=== PATIENT | male | born 1950 | race Caucasian/White ===

== ENCOUNTER 2020-11-04 14:39 | Outpatient (CLI) | payer OTHER, SELFPAY ==
--- NOTE | 2020-11-04 14:45 | XR_ITS ---
WS: [id number] Exam: XR cervical spine 4-5V 92023 Date/Time of Exam: 11/04/2020 2:45 PM Reason For Exam: CERVICALGIA No acute fracture or dislocation. There is reversal of the normal cervical lordosis. Degenerative dis c narrowing at C3-4, C4-5 and C5-6. Mild spondylosis. Facet DJD at all levels. Narrowing of the left intervertebral foramina at C4-5, C5-6 and C6-7. Narrowing of the right vertebral foramina at C3-4, C4 -5, C5-6 and C6-7. Foraminal narrowing secondary to uncovertebral spurring. Bilateral carotid artery calcifications noted most extensive on the left. The odontoid is intact. Paraspinal soft tissues appe ar normal. XR/XR cervical spine 4-5V [id number] IMPRESSION: 1. No acute fracture or dislocation. 2. Reversal of the normal cervical lordosis. 3. Moderately advanced degenerative changes as detailed above.
== END 2020-11-04 14:40 | disposition home or self-care (01) ==
LOC: RAD 14:40
PROVIDERS: PCP Nurse Practitioner; Visit Provider Family Medicine
DX: M54.2 Cervicalgia (principal)
CPT/HCPCS: 72050

== ENCOUNTER → 2022-01-13 10:10 | Outpatient (BNVA) | payer OTHER, SELFPAY | PROVIDERS: PCP Family Medicine; Visit Provider Internal Medicine Cardiovascular Disease | DX: I71.2 Thoracic aortic aneurysm, without rupture (principal); I71.4 Abdominal aortic aneurysm, without rupture; I10 Essential (primary) hypertension; E11.9 Type 2 diabetes mellitus without complications; J44.9 Chronic obstructive pulmonary disease, unspecified; Z87.891 Personal history of nicotine dependence; Z79.84 Long term (current) use of oral hypoglycemic drugs | CPT/HCPCS: 99204 ==

== ENCOUNTER 2022-02-25 12:15 | Outpatient (CLI) | payer OTHER, SELFPAY ==
--- NOTE | 2022-02-25 12:30 | CT_ITS ---
WS: [id number] CT ANGIOGRAPHY chest and abdomen HISTORY: Thoracic and Abdominal Aortic Aneurysm TECHNIQUE: Noncontrast CT first performed through the abdomen and chest. CT angiogram is performed du ring IV injection. Reformation images reviewed. MIP imaging reviewed. All CT scans at [facility] use at least one of these dose optimization techniques: automated exposure control; mA and/or kV a djustment per patient size (includes targeted exams where dose is matched to clinical indication); or iterative reconstruction. CONTRAST: Omnipaque 350; 95 mL IV. DLP: 2107.51 mGy-cm. COMPARISON: None available. Thoracic aorta: Mild ectasia and dilatation of the thoracic aorta. Moderate scattered calcified plaqu e and intimal thickening throughout the aorta. The ascending aorta is not dilated. Beginning through the aortic arch calcification and intimal thickening increases in the amount. Small amount calcified plaque at the origins of the great vessels, great vessels are intact. Beginning in the descending thoracic aorta the plaque and dilatation increa ses. There are 2 penetrating ulcers beginning in the proximal descending thoracic aorta. The largest ulcer measures 3.0 x 1.1 cm and is along the lateral side of the descending aorta. There is a smaller penetrating ulcer measuring 1.2 x 0.7 cm slightly more proximal along the arch. These ulcers are bot h contained at this time by the overlying adventitia. Mildly ectatic but normal size aortic continues distally. At the level of the GE junction mild aneurysmal dilatation to 4.6 cm. Abdominal aorta: Calcified plaque and intimal thickening continues into the abdominal aorta. Below th e GE junction aorta returns to normal size. Plaque and intimal thickening continue within the aorta. In the infrarenal aorta there is mild haziness involving the wall of the aorta and variable contrast opacification within the lumen. There is an additional contrast noted from the posterior and RIGHT la teral aorta just below the renal arteries consistent with another penetrating ulcer or a possible zachary rt dissection, image 191 of series 6. Additional tiny outpouching from the anterior aorta on image 18 6 of series 6. Mild increase in the wall thickness of the inferior aorta. No rupture. Iliac arteries are tortuous. Arteries are patent. On the delayed imaging no persistent contrast opacification or ext ravasation. No pulmonary mass or nodule. Mild bronchiectasis RIGHT lower lobe with adjacent areas of groundglass attenuation and endobronchial thickening. Pulmonary artery size is normal. No significant adenopathy. No pericardial or pleural effusion. Moderate atherosclerotic plaque within the [place] coronary arter ies. No hiatal hernia. Early contrast arterial enhancement of the organs demonstrates no acute abnormalities. The liver is n ormal size. Normal spleen with granulomata. Negative gallbladder and pancreas. No adrenal mass. Anneliese l appearance of the kidneys with no obstruction. No ascites or adenopathy. Mesenteric arteries are pa tent with mild atherosclerotic plaque. Bilateral accessory renal arteries. Kidneys and normally enhan cing. No GI tract obstruction. Moderate diverticulosis without acute diverticulitis. Appendix is normal. Ve ntral abdominal wall hernia contains fat only. Bones are osteopenic. CT/CT angio chest abdomen IMPRESSION: 1. Penetrating thoracic aorta ulcers x2. Penetrating ulcers are along the prox imal descending thoracic aorta with the largest measuring 3.0 x 1.1 cm. 2. 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 3. 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 There is mild wall thickening and haziness with variable opacification of the lumen. 4. Additional infrarenal small penetrating ulcers as above. 5. Normal renal enhancement. Incidental note is made of accessory renal arteri es. 6. RIGHT lower lobe bronchiectasis.
[2022-02-25] MEDS: iohexol 350 mg/mL 100 mL Btl IV (13:14)
[2022-02-25 13:16] LABS: Blood Urea Nitrogen 11 mg/dL (8-23); Glomerular Filtration Rate 83.4 mL/min (90-130)
== END 2022-02-25 12:16 | disposition home or self-care (01) ==
LOC: RAD 12:16
PROVIDERS: PCP Family Medicine; Visit Provider Internal Medicine Cardiovascular Disease
DX: I71.2 Thoracic aortic aneurysm, without rupture (principal); I71.4 Abdominal aortic aneurysm, without rupture
CPT/HCPCS: 71275; 74175; 82565; 84520

== ENCOUNTER → 2022-06-12 10:45 | Outpatient (BNVA) | payer OTHER, SELFPAY | PROVIDERS: PCP Family Medicine; Visit Provider Internal Medicine Cardiovascular Disease | DX: Z01.818 Encounter for other preprocedural examination (principal); I71.9 Aortic aneurysm of unspecified site, without rupture; I71.2 Thoracic aortic aneurysm, without rupture; I71.4 Abdominal aortic aneurysm, without rupture; I10 Essential (primary) hypertension; E11.9 Type 2 diabetes mellitus without complications; Z79.84 Long term (current) use of oral hypoglycemic drugs; Z87.891 Personal history of nicotine dependence | CPT/HCPCS: 99214 ==

== ENCOUNTER 2022-06-25 09:25 | Outpatient (CLI) | payer OTHER, SELFPAY ==
--- NOTE | 2022-06-25 | ECG_ITS ---
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 Interpretive Statements NAME OF STUDY: LEXISCAN SESTAMIBI STRESS TEST INDICATION: CARDIAC CLEARANCE PROCEDURE: At the baseline, the blood pressure was 164/103 mmHg with a heart rate of 52 bpm. The electrocardiogram showed sinus bradycardia with artifact. Poor anterior R wave progression. The Lexiscan was infused over a period of 20 seconds. A total of 0.4 milligrams of Lexiscan was infused. The stress phase was continued for a total of 5 minutes. Heart rate at the end of the stress phase was 60 beats per min with a blood pressure of 138/90 mmHg. The EKG at the peak infusion revealed sinus rhythm with no significant ST-T wave changes. Isolated PVC noted during Lexiscan infusion. The study was terminated due to protocol completion. Sestamibi was injected 20 seconds after the Lexiscan infusion. Blood pressure at the end of the recovery phase was 154/93 mmHg with a heart rate of 55 beats per minute. Isolated PVCs in bigeminal pattern noted in recovery. CONCLUSION: 1. No significant EKG changes with the LexiScan infusion. 2. No LexiScan induced chest pain or cardiac arrhythmia. 3. Baseline hypertension with normal blood pressure and heart rate response. 4. Sestamibi/sestamibi perfusion scan pending; see separate report. Electronically Signed On 06-29-2022 9:58:17 CDT by Lamar Luu M.D. [id number]
--- NOTE | 2022-06-25 10:17 | NMCV_ITS ---
NM marylu perf SPECT r/s* [id number] Franck Dela Cruz Age: 72 Gender: M : 1950 Exam Date: 06/25/2022 10:17 Ordering Phys: Lamar Luu MD ([email or web address]) Technologist: ELVER Roger Exam Location: [facility] Indications: Preoperative cardiac clearance STRESS TEST [facility] IMAGE PROTOCOL Rest/Stress 1 Lexiscan Day Radiopharmaceutical Dose (mCi) Administration Site Administered by Rest: Tc-99m 11.0 IV ELVER Foote Sestamibi Stress:Tc-99m 32.5 IV ELVER Foote Sestamibi Rest: 25-Jun-2022 60 Discovery 630 Stress: 25-Jun-2022 30 Discovery 630 0.4mg Lexiscan. Supine position only as patient was unable to lay prone. SPECT RESULTS Technical Quality: Excellent Raw Data Analysis: Normal Image Corrections: No attenuation or motion correction applied Summed Stress Score: 0 Summed Rest Score: 1 Summed Difference Score: 0 PERFUSION FINDINGS Small sized perfusion abnormality of mild severity of basal inferolateral wall on rest imaging with improved tracer uptake on stress images. This is suggestive of attenuation artifact. FUNCTIONAL RESULTS (calculated via Gated SPECT) Stress Image LV EF (%): 57 Stress EDV (mL):129 TID: 1 Stress ESV (mL):56 FUNCTIONAL FINDINGS: The left ventricle is normal in size. Transient Ischemia Dilatation of 1. The left ventricular ejection fraction is normal with a value of 57%. There is normal left ventricular wall thickening. Normal end-diastolic and end-systolic volumes. IMPRESSIONS 1. Myocardial perfusion imaging is normal. 2. Overall left ventricular systolic function is normal without regional wall motion abnormalities, LVEF=57%. 3. No EKG changes with Lexiscan infusion. Refer to separate report for details Lamar Luu MD (Electronically Signed) Final Date: 29 June 2022 10:05 S
[2022-06-25 10:18] VITALS: BMI 31.8
[2022-06-25] MEDS: regadenoson 0.4 Mg/5 ml Syringe IVP (11:54)
[2022-06-25 14:07] VITALS: PULSE 55
== END 2022-06-25 09:26 | disposition home or self-care (01) ==
LOC: CDL 09:27
PROVIDERS: PCP Family Medicine; Visit Provider Internal Medicine Cardiovascular Disease
DX: R07.9 Chest pain, unspecified (principal)
CPT/HCPCS: 78452; 93017; A9500; J2785

== ENCOUNTER 2022-07-19 04:22 | Emergency (ER) | payer OTHER, SELFPAY ==
[2022-07-19 04:25] VITALS: BP 163/97; PULSE 70; RESP 18; TEMP 36.7; O2SAT 96; BMI 31.1
[2022-07-19] MEDS: tranexamic acid 1,000 mg/10mL SDV 1000 MG IRRIGATION (04:52)
[2022-07-19] MEDS: gelatin 12-7 mm Sponge 1 EACH TOPICAL (04:52)
[2022-07-19 05:30] LABS: Basophils # 0.1 10^3/uL (0.0-0.1); Basophils % 0.6 %; Eosinophils # 0.5 10^3/uL (0.0-0.8); Eosinophils % 5.2 %; Hematocrit 40.1 % (42.0-52.0); Hemoglobin 12.9 g/dL (11.7-16.6); Lymphocytes # 2.6 10^3/uL (0.8-4.8); Lymphocytes % 26.4 %; Mean Corpuscular HGB Conc 32.2 g/dL (30.0-36.0); Mean Corpuscular Hemoglobin 30.1 pg (28.0-34.0); Mean Corpuscular Volume 93.7 fl (80-94); Mean Platelet Volume 9.6 fL (7.4-10.4); Monocytes # 0.9 10^3/uL (0.2-0.9); Monocytes % 9.3 %; Neutrophils # 5.78 10^3/uL (1.8-7.7); Neutrophils % 57.9 %; Nucleated Red Blood Cells % 0 %; Platelet Count 288 10^3/cmm (130-400); Red Blood Count 4.28 10^6/uL (4.1-5.3); Red Cell Distribution Width 12.7 % (12.1-15.1)
[2022-07-19 05:43] LABS: INR 1.01 (0.8-1.2)
[2022-07-19 05:44] LABS: Partial Thromboplastin Time 30.4 SECONDS (23.9-36.7)
[2022-07-19] MEDS: silver nitrate applicator 1 EACH TOPICAL (06:29)
[2022-07-19] MEDS: cetacaine Spray 5 gm Can 1 SPRAY TOPICAL (06:29)
--- NOTE | 2022-07-19 06:50 | ED_ITS ---
HPI - General Adult General: Chief complaint: General Medical Stated complaint: nose bleed Time Seen by Provider: 07/19/22 04:40 Source: patient and family Mode of arrival: ambulatory History of Present Illness: 72-year-old gentleman who was placed on Plavix last week after a vascular procedure. He presents with a right-sided nosebleed that is significant. He has tried packing and pressure without improvement. Onset (ago): hour(s) Radiation: non-radiation Quality: other Pain Consistency: other Relieving factors: other Associated symptoms: Reports nausea; Deny chest pain, confusion, cough, diaphoresis, dyspnea, fevers/chills, headache(s), short of breath, vomiting or weakness Treatments prior to arrival: other Review of Systems Const: Denies: fever(s) or diaphoresis Eyes: Denies: change in vision ENMT: Denies: throat pain Card: Denies: chest pain Resp: Denies: dyspnea GI: Reports: nausea; Denies: vomiting Neuro: Denies: headache(s) or confusion PFS ED PFSH: Medical History (Updated 07/19/22 @ 06:53 by Reagan Davenport DO) Abdominal aortic aneurysm (AAA) COPD (chronic obstructive pulmonary disease) HTN (hypertension) Lung nodules Thoracic aortic aneurysm Type 2 diabetes mellitus Surgical History S/P AAA (abdominal aortic aneurysm) repair S/P cataract surgery S/P eye surgery S/P lens implant S/P tonsillectomy Family History Father Diabetes Mother Diabetes Family/Other Stroke Social History Smoking and tobacco status: former smoker Physical Exam Const: COMMON NORMALS: no acute distress GENERAL APPEARANCE: cooperative and comfortable; not ill appearing HENMT: COMMON NORMALS: normocephalic, atraumatic and external ears normal HEAD & SCALP: normocephalic and atraumatic FACE & SINUS: face symmetric NOSE: Epistaxis present on the right anterior source, active bleeding and clots present EXTERNAL EAR: Yes external ears normal MOUTH: Normal oral and palatal mucosa present Eye: COMMON NORMALS: Equal, round and reactive pupils present and EOMs intact bilaterally PUPIL: Yes Equal, round and reactive pupils present Neck/C-Spine: GENERAL: Yes trachea midline Chest: CHEST: Yes Symmetrical chest wall rise Resp: COMMON NORMALS: normal respiratory effort, No retractions and clear to auscultation bilaterally AUSCULTATION: clear to auscultation bilaterally Cardio: COMMON NORMALS: regular rate and regular rhythm RATE: regular rate RHYTHM: regular rhythm Procedures Epistaxis Control Time Out Performed: No Nostril: right Nose Prepped With: tetracaine Direct Inspection: yes and anterior source identified Clots Removed by: blowing nose and suction Cautery Used: silver nitrate Device Inserted: nasal tampon Patient Tolerated Procedure: well and no complications Course Vital Signs: Vital signs: Vital Signs Temperature 98.0 F 07/19/22 04:25 Pulse Rate 73 07/19/22 07:08 Respiratory Rate 18 07/19/22 07:08 Blood Pressure 163/97 07/19/22 07:08 Pulse Oximetry 96 07/19/22 04:25 Oxygen Delivery Me thod 07/19/22 04:25 [facility] - General Adult Medical Decision Making Multiple modalities were tried including pressure, TXA soaked Gelfoam, attempted cauterization with silver nitrate, and finally the nasal tampon. Nasal tampon seems to have stopped bleeding both anterior and posterior. We will attempt to get him a ENT consult Wednesday or Wednesday. Lab Data : 07/19/22 05:24 Laboratory Results WBC 10.0 10^3/uL (4.0-10.0) 07/19/22 05:24 RBC 4.28 10^6/uL (4.1-5.3) 07/19/22 05:24 Hgb 12.9 g/dL (11.7-16.6) 07/19/22 05:24 Hct 40.1 % (42.0-52.0) L 07/19/22 05:24 MCV 93.7 fl (80-94) 07/19/22 05:24 MCH 30.1 pg (28.0-34.0) 07/19/22 05:24 MCHC 32.2 g/dL (30.0-36.0) 07/19/22 05:24 RDW 12.7 % (12.1-15.1) 07/19/22 05:24 Plt Count 288 10^3/cmm (130-400) 07/19/22 05:24 MPV 9.6 fL (7.4-10.4) 07/19/22 05:24 Neut % (Auto) 57.9 % 07/19/22 05:24 Lymph % (Auto) 26.4 % 07/19/22 05:24 [place] % (Auto) 9.3 % 07/19/22 05:24 Eos % (Auto) 5.2 % 07/19/22 05:24 Baso % (Auto) 0.6 % 07/19/22 05:24 Neut # (Auto) 5.78 10^3/uL (1.8-7.7) 07/19/22 05:24 Lymph # (Auto) 2.6 10^3/uL (0.8-4.8) 07/19/22 05:24 [place] # (Auto) 0.9 10^3/uL (0.2-0.9) 07/19/22 05:24 Eos # (Auto) 0.5 10^3/uL (0.0-0.8) 07/19/22 05:24 Baso # (Auto) 0.1 10^3/uL (0.0-0.1) 07/19/22 05:24 Nucleated RBC % (auto) 0 % 07/19/22 05:24 Nucleated RBCs # 0.0 /100WBC 07/19/22 05:24 PT 13.60 SECONDS (12.1-14.9) 07/19/22 05:24 INR 1.01 (0.8-1.2) 07/19/22 05:24 APTT 30.4 SECONDS (23.9-36.7) 07/19/22 05:24 Discharge Plan Discharge Patient Disposition: Home Clinical Impression: Epistaxis Condition: Stable Prescriptions: No Action aspirin [Adult Low Dose Aspirin] 81 mg tablet,delayed release (DR/EC) 81 mg PO DAILY cholecalciferol (vitamin D3) 50 mcg (2,000 unit) capsule 50 mcg PO DAILY cyclobenzaprine 10 mg tablet 10 mg PO TID PRN diltiazem HCl 90 mg tablet 90 mg PO TID fluticasone propionate [Allergy Relief (fluticasone)] 50 mcg/actuation spray,suspension 1 spray intranasal DAILY PRN Rx Instructions: administer into each nostril hydrocodone-acetaminophen 10-325 mg tablet 1 tab PO Q6H PRN hydroxyzine HCl 25 mg tablet 25 mg PO .HS PRN latanoprost 0.005 % drops 1 drp ophthalmic (eye) DAILY losartan 100 mg tablet 50 mg PO BID metformin 1,000 mg tablet 500 mg PO BID Breztri Aerosphere 160-9-4.8 mcg/actuation HFA aerosol inhaler 2 inh inhalation BID PRN minocycline 50 mg capsule 50 mg PO DAILY Discharge Orders: Discharge ED (Routine); Ordered 07/19/22 Ordered By: Reagan Davenport Referrals: Na Atkinson MD [Primary Care Provider] - Javier Jackson MD [Physician] - 1-3 days Patient Instructions: Nosebleed (ED) Activity Restrictions/Additional Instructions: Packing must be removed by a healthcare provider. It should stay in for 24 to 48 hours. We will attempt to get you an appointment tomorrow with ENT surgery. This way, packing can be removed, and exam can happen at the same time. Return for worsening bleeding despite presence of the packing, any other concerning symptoms. Case management will call to make an appointment for you. If you wish to call sooner in the morning, the number is provided above. Coding Level of Care Code ED Real Estate Lawyer for Florentino Pineda
[2022-07-19 07:08] VITALS: BP 163/97; PULSE 73; RESP 18
--- NOTE | 2022-07-20 09:55 | DCPLANNER ---
Addendum entered by Osiris Hernandez 09/02/22 15:34: Patient had a follow up appointment scheduled with ENT - patient did attend appointment Addendum entered by Osiris Hernandez 07/23/22 14:42: Patient has a follow up appointment scheduled for Wednesday, July 24, [address] Jackson at ENT. Clinic will call patient with appointment information. Original Note: associate brand manager had message to schedule a follow up appointment for patient with ENT. associate brand manager sent patients information to the front office staff at ENT. Patients information will be printed and reviewed. Clinic will call patient with appointment information.
== END 2022-07-19 07:11 | disposition home or self-care (01) ==
PROVIDERS: Emergency Provider Emergency Medicine; PCP Family Medicine
DX: R04.0 Epistaxis (principal); Z79.82 Long term (current) use of aspirin; Z79.84 Long term (current) use of oral hypoglycemic drugs; J44.9 Chronic obstructive pulmonary disease, unspecified; I10 Essential (primary) hypertension; E11.9 Type 2 diabetes mellitus without complications; Z87.891 Personal history of nicotine dependence
CPT/HCPCS: 30903; 85025; 85610; 85730; 99283

== ENCOUNTER → 2022-07-24 10:28 | Outpatient (BNVA) | payer OTHER, MEDICARE, SELFPAY | PROVIDERS: PCP Family Medicine; Visit Provider Otolaryngology | DX: R04.0 Epistaxis (principal) | CPT/HCPCS: 99205 ==

== ENCOUNTER → 2022-07-31 11:25 | Outpatient (BNVA) | payer OTHER, MEDICARE, SELFPAY | PROVIDERS: PCP Family Medicine; Visit Provider Otolaryngology | DX: R04.0 Epistaxis (principal) | CPT/HCPCS: 99213; 99214 ==

== ENCOUNTER 2022-09-25 10:53 | Outpatient (CLI) | payer OTHER, SELFPAY ==
[2022-09-28 10:31] LABS: Blood Urea Nitrogen 7 mg/dL (8-23)
== END 2022-09-25 10:54 | disposition home or self-care (01) ==
PROVIDERS: PCP Internal Medicine; Visit Provider Clinical Nurse Specialist Adult Health
DX: Z01.89 Encounter for other specified special examinations (principal)
CPT/HCPCS: 82565; 84520

== ENCOUNTER 2022-09-28 14:30 | Outpatient (CLI) | payer OTHER, SELFPAY ==
--- NOTE | 2022-09-28 14:42 | CT_ITS ---
WS: [id number] CTA CHEST , ABDOMEN AND PELVIS. HISTORY: Thoracic aortic aneurysm. TECHNIQUE: CT angiogram is performed through the chest. Additional imaging is performed through the a bdomen and pelvis with IV contrast. Sagittal and coronal reformats have been submitted. MIP imaging also reviewed. All CT scans at [facility] use at least one of these dose optimization techniqu es: automated exposure control; mA and/or kV adjustment per patient size (includes targeted exams whe re dose is matched to clinical indication); or iterative reconstruction. Contrast: Omnipaque 350; 95 cc IV. DLP: 2241.45 mGy.cm COMPARISON: 02/25/2022 Chest CTA: Since the prior examination patient has undergone endovascular graft repair thoracic aorta beginning in the aortic arch through the mid descending thoracic aorta. Previously described ulcerat ions have been covered by the stent. Very good opacification of the aorta. No endovascular leak at th e level of the graft. Normal ascending aorta. Origin of the great vessels is normal. There does appea r to be a short stent in the proximal LEFT subclavian artery. No new or enlarging aneurysm or ulcerat ed plaques. Previously described aneurysm at the aortic hiatus is reidentified. The diameter of the a aida is 4.5 cm with no significant increase in size. Mixing of contrasted blood through the aneurysm. Pulmonary consolidations are new since the prior study. Most significant consolidation at the lung ba ses, RIGHT greater than LEFT with additional irregular opacification RIGHT upper lobe. Developing bro nchiectasis RIGHT lower lobe. No pleural effusions. Heart size remains slightly enlarged. No filling defects in the visualized pulmonary arteries. No adenopathy. Abdomen/pelvis CTA: Ectatic mildly dilated abdominal aorta continues from the aortic hiatus to the b ifurcation. There is mild mixing of blood and contrast. There is mild wall thickening of the aorta si milar to the prior study. The ulcerating ulcer along the posterior RIGHT lateral infrarenal aorta is unchanged. Maximum diameter of the infrarenal aorta is 3.5 cm. Ectatic iliac arteries. No iliac arter y aneurysm. Poor opacification of the abdominal aorta and iliac arteries due to poor bolus injection. Small hiatal hernia. Splenic granulomata. Negative gallbladder and liver. No adrenal mass. Very early enhancement of the kidneys. No GI tract obstruction. Numerous diverticula throughout the colon. Abdo luisa wall hernia contains fat only. No free fluid or adenopathy. CT/CT ang pauline abdpe [id number] IMPRESSION: 1. Status post endovascular graft repair thoracic aorta beginning at the arch to the mid descending thoracic aorta. No endograft leak and no enlargement of t he ulceration. 2. Ectatic mildly dilated distal thoracic aorta is stable. 3. Mild aneurysmal dilatation infrarenal abdominal aorta at 3.5 cm with mild w all thickening. No interval change. 4. Additional infrarenal abdominal aortic penetrating ulcer unchanged. 5. Extensive diverticulosis. 6. New bilateral lower lobe and RIGHT upper lobe opacifications. Probably due to pneumonitis and areas of atelectasis. Developing bronchiectasis at the RIGHT lung base should be considered. Consider additional evaluation of the lungs.
[2022-09-28] MEDS: iohexol 350 mg/mL 500 mL Btl (per mL) IV (15:30)
== END 2022-09-28 14:31 | disposition home or self-care (01) ==
PROVIDERS: PCP Internal Medicine; Visit Provider Otolaryngology
DX: I71.9 Aortic aneurysm of unspecified site, without rupture (principal)
CPT/HCPCS: 71275; 74174; Q9967

== ENCOUNTER → 2022-12-11 10:48 | Outpatient (BNVA) | payer OTHER, SELFPAY | PROVIDERS: PCP Internal Medicine; Visit Provider Specialist | DX: I10 Essential (primary) hypertension (principal); Z98.890 Other specified postprocedural states; Z86.79 Personal history of other diseases of the circulatory system; Z72.0 Tobacco use | CPT/HCPCS: 99214 ==

== ENCOUNTER → 2023-01-07 10:37 | Outpatient (BNVA) | payer OTHER, SELFPAY | PROVIDERS: PCP Internal Medicine; Visit Provider Podiatrist Foot & Ankle Surgery | DX: L60.3 Nail dystrophy (principal); L60.8 Other nail disorders | CPT/HCPCS: 99203 ==

== ENCOUNTER → 2023-05-28 09:18 | Outpatient (BNVA) | payer OTHER, SELFPAY | PROVIDERS: PCP Internal Medicine; Visit Provider Internal Medicine Cardiovascular Disease | DX: I71.9 Aortic aneurysm of unspecified site, without rupture (principal); I10 Essential (primary) hypertension; E11.9 Type 2 diabetes mellitus without complications; I71.20 Thoracic aortic aneurysm, without rupture, unspecified; Z87.891 Personal history of nicotine dependence | CPT/HCPCS: 99214 ==

== ENCOUNTER → 2024-06-13 11:40 | Outpatient (BNVA) | payer OTHER, SELFPAY | PROVIDERS: PCP Internal Medicine; Visit Provider Surgery | DX: R63.4 Abnormal weight loss; K21.9 Gastro-esophageal reflux disease without esophagitis | CPT/HCPCS: 99204 ==